=== PATIENT | female | born 1985 | race Caucasian/White ===

== ENCOUNTER 2017-06-29 18:38 | Emergency (ER) | payer BC ==
[~2017-06-29] VITALS: Ht 162.6 cm; Wt 102.9 kg
[2017-06-29 18:50] VITALS: TEMP 36.7; Ht 162.6 cm; Wt 102.9 kg
[2017-06-29] MEDS ORDERED: SODIUM CHLORIDE 0.9% 1000ML 1,000 ML IV STA (20:05)
[2017-06-29 20:20] LABS: URINE APPEARANCE CLOUDY (CLEAR); URINE BILIRUBIN NEG (NEG); URINE COLOR YELLOW; URINE EPITHELIAL CELL AUTO >30 /lpf (0-5); URINE NITRITE NEG (NEG); URINE SPECIFIC GRAVITY 1.031 (1.000-1.030); UROBILINOGEN NEG (NEG); ZZUR CULT IF INDIC CLEAN CATCH YES
[2017-06-29 20:21] LABS: MANUAL MICROSCOPIC REQUIRED? NO; REVIEW REQ? YES
[2017-06-29 20:31] LABS: BASO % 0.3 %; BASO ABS # 0.04 K/uL (0-0.2); COMPLETE YES; EOS % 2.8 %; HEMATOCRIT 38.9 % (37-47); IG% 0.3 %; LYMPH % 28.3 %; MEAN CELL VOLUME 89.6 fL (80-100); MEAN CORPUSCULAR HEMOGLOBIN 30.2 pg (25-34); MEAN CORPUSCULAR HGB CONC 33.7 g/dl (32-36); MEAN PLATELET VOLUME 10.3 fL (7.4-10.4); MONO % 5.9 %; NEUT % 62.4 %; PLATELET COUNT 281 K/uL (130-400); RED BLOOD COUNT 4.34 M/uL (4.2-5.4); WHITE BLOOD COUNT 14.14 K/uL (4.8-10.8)
[2017-06-29 20:47] LABS: ALT/SGPT 29 U/L (12-78); BLOOD UREA NITROGEN 11 mg/dl (7-18); BUN/CREATININE RATIO 13.1 (10-20); CALCIUM 9.1 mg/dl (8.5-10.1); CARBON DIOXIDE 22 mmol/L (21-32); CHLORIDE 110 mmol/L (98-107); CREATININE 0.86 mg/dl (0.60-1.20); GLUCOSE 94 mg/dl (70-99); POTASSIUM 3.8 mmol/L (3.5-5.1); SODIUM 139 mmol/L (136-145)
[2017-06-29 20:51] LABS: ALKALINE PHOSPHATASE 115 U/L (45-117); AST/SGOT 16 U/L (15-37)
--- NOTE | 2017-06-29 20:59 | DIAGNOSTIC IMAGING REPORT ---
RETROPERITONEAL COMPLETE CLINICAL HISTORY: Lower abdominal and back pain. COMPARISON STUDY: Renal ultrasound April 16, 2013. FINDINGS: The right kidney measures 10.6 cm in maximal dimension and the left measures 10.7 cm. There is no hydronephrosis. A few echogenic foci within the right renal sinus without associated shadowing could reflect right renal calculi. Bladder is decompressed and therefore suboptimally assessed. A small amount of free fluid is noted within the pelvis. No renal masses are identified. IMPRESSION: 1. No hydronephrosis. 2. Possible right-sided nephrolithiasis. 3. Small amount of fluid within the pelvis. Electronically signed by: Neal Briggs M.D. 06/29/2017 8:57 PM Dictated Date/Time: 06/29/2017 8:55 PM
[2017-06-29] MEDS ORDERED: OPTIRAY 320 IV PRN (21:45)
[2017-06-29] MEDS ORDERED: ONDANSETRON INJ 2 MG/ML 2 ML VIAL ONE (22:02)
[2017-06-30 00:22] VITALS: BP 112/71; PULSE 77; O2SAT 98
[2017-06-30] MEDS ORDERED: NITR-5 PO (00:42)
[2017-06-30] MEDS ORDERED: MACROBID 100MG HOME PACK 1 EA VIAL PO ONE (00:45)
--- NOTE | 2017-06-30 00:50 | EMERGENCY ROOM VISIT NOTE ---
History First contact with patient: 19:44 Chief Complaint: URINARY SYMPTOMS Stated Complaint: PEEING BLOOD Nursing Triage Summary: blood in urine , abdominal pain, back pain 05/28. History of Present Illness The patient is a 31 year old female who presents to the Emergency Room with complaints of lower abdominal pain, lower back pain and blood in urine. The patient reports that her symptoms started this morning with discomfort, and noticed blood in her urine this afternoon. The patient reports that she did not urinate until this afternoon. The patient reports a prior history of kidney stones and ovarian cysts. She will usually get blood in her urine was stones. She denies any recent urinary symptoms, including increased frequency, urgency or dysuria. She denies , and last menstruation was approximately one month ago. She has had some mild nausea. The patient is status post appendectomy. He has no alleviating or aggravating factors for her pain, and rates her overall discomfort a 7 out of 10. Review of Systems HEENT: Denies dizziness, visual problems, hearing loss, tinnitus. Denies difficulty swallowing or oral lesions. PULMONARY: Denies cough, shortness of breath, sputum production or hemoptysis. CARDIOVASCULAR: Denies chest pain, palpitations, dyspnea on exertion, orthopnea or peripheral edema. GASTROINTESTINAL: See history of present illness. GENITOURINARY: Denies dysuria, frequency, urgency or nocturia. The patient does report hematuria. NEUROLOGIC: Denies history of epilepsy, CVA, TIA or chronic headaches. MUSCULOSKELETAL: Denies history of joint tenderness/swelling. SKIN: Denies rashes or lesions. PSYCHIATRIC: Denies history of depression or mental illness. ENDOCRINE: Denies history of diabetes or thyroid disorders. Past Medical/Surgical History Medical Problems: (1) Kidney stone (2) Ovarian cyst Surgical Problems: (1) History of appendectomy (2) History of cholecystectomy Family History FH: cancer FH: diabetes mellitus FH: gallbladder disease FH: heart disease FH: hypertension FH: kidney disease Social History Smoking Status: Never Smoker Alcohol Use: none Drug Use: none Marital Status: single Housing Status: lives with friends Occupation Status: employed Current/Historical Medications Scheduled Nitrofurantoin Monohyd Macrocr (Macrobid), 100 MG PO BID Physical Exam Vital Signs Date Time Temp Pulse Resp B/P (MAP) Pulse Ox O2 Delivery O2 Flow Rate FiO2 06/29/17 22:26 68 18 163/105 99 Room Air 06/29/17 20:55 72 18 153/95 99 Room Air 06/29/17 18:50 36.7 74 18 148/90 100 Room Air Physical Exam CONSTITUTIONAL: Healthy and well nourished. Alert and oriented X 3 with positive affect. Patient does not appear in any acute distress or discomfort. HEENT: Normocephalic, atraumatic. Pupils equal, round and reactive. No scleral icterus or conjunctival injection/pallor. NECK: Full active range of motion without discomfort. RESPIRATORY: Clear to auscultation bilaterally with no wheezing, crackles, rhonchi or stridor. CARDIOVASCULAR: Regular rate and rhythm with no murmurs, rubs or gallops. GASTROINTESTINAL: Bowel sounds present in all quadrants. Patient has suprapubic and left lower quadrant tenderness to palpation. Negative CVA tenderness. No abdominal rigidity, guarding or rebound. MUSCULOSKELETAL: Full range of motion of all joints without discomfort. INTEGUMENTARY: No rash or other significant dermatologic conditions noted. HEMATOLOGIC: No ecchymosis or petechiae noted. NEUROLOGIC: No focal neurologic deficits noted. Medical Decision & Procedures ER Provider Diagnostic Interpretation: Retroperitoneal ultrasound does not show any hydronephrosis. Radiologist report is as follows: RETROPERITONEAL COMPLETE CLINICAL HISTORY: Lower abdominal and back pain. COMPARISON STUDY: Renal ultrasound April 16, 2013. FINDINGS: The right kidney measures 10.6 cm in maximal dimension and the left measures 10.7 cm. There is no hydronephrosis. A few echogenic foci within the right renal sinus without associated shadowing could reflect right renal calculi. Bladder is decompressed and therefore suboptimally assessed. A small amount of free fluid is noted within the pelvis. No renal masses are identified. IMPRESSION: 1. No hydronephrosis. 2. Possible right-sided nephrolithiasis. 3. Small amount of fluid within the pelvis. Enhanced CT of the abdomen and pelvis did not show any evidence for acute diverticulitis, ureteral stone, hydronephrosis or bowel obstruction. A 4 mm lower pole right renal calculus, and 5 mm right middle lobe nodule is noted. Radiologist report is pending. [facility] report was reviewed. Laboratory Results 06/29/17 20:15 Red Blood Count 4.34, Mean Corpuscular Volume 89.6, Mean Corpuscular Hemoglobin 30.2, Mean Corpuscular Hemoglobin Concent 33.7, Mean Platelet Volume 10.3, Neutrophils (%) (Auto) 62.4, Lymphocytes (%) (Auto) 28.3, Monocytes (%) (Auto) 5.9, Eosinophils (%) (Auto) 2.8, Basophils (%) (Auto) 0.3, Neutrophils # (Auto) 8.83, Lymphocytes # (Auto) 4.00, Monocytes # (Auto) 0.83, Eosinophils # (Auto) 0.40, Basophils # (Auto) 0.04 06/29/17 20:15 Test 06/29/17 19:55 06/29/17 20:15 Urine Color YELLOW Urine Appearance CLOUDY (CLEAR) Urine pH 5.0 (4.5-7.5) Urine Specific [place] 1.031 (1.000-1.030) Urine Protein NEG (NEG) Urine Glucose (UA) NEG (NEG) Urine Ketones NEG (NEG) Urine Occult Blood NEG (NEG) Urine Nitrite NEG (NEG) Urine Bilirubin NEG (NEG) Urine Urobilinogen NEG (NEG) Urine Leukocyte Esterase SMALL (NEG) Urine WBC (Auto) 10-30 /hpf (0-5) Urine RBC (Auto) 0-4 /hpf (0-4) Urine Hyaline Casts (Auto) 5-10 /lpf (0-5) Urine Epithelial Cells (Auto) >30 /lpf (0-5) Urine Bacteria (Auto) 2+ (NEG) Urine Test NEG (NEG) White Blood Count 14.14 K/uL (4.8-10.8) Red Blood Count 4.34 M/uL (4.2-5.4) Hemoglobin 13.1 g/dL (12.0-16.0) Hematocrit 38.9 % (37-47) Mean Corpuscular Volume 89.6 fL (80-100) Mean Corpuscular Hemoglobin 30.2 pg (25-34) Mean Corpuscular Hemoglobin Concent 33.7 g/dl (32-36) Platelet Count 281 K/uL (130-400) Mean Platelet Volume 10.3 fL (7.4-10.4) Neutrophils (%) (Auto) 62.4 % Lymphocytes (%) (Auto) 28.3 % Monocytes (%) (Auto) 5.9 % Eosinophils (%) (Auto) 2.8 % Basophils (%) (Auto) 0.3 % Neutrophils # (Auto) 8.83 K/uL (1.4-6.5) Lymphocytes # (Auto) 4.00 K/uL (1.2-3.4) Monocytes # (Auto) 0.83 K/uL (0.11-0.59) Eosinophils # (Auto) 0.40 K/uL (0-0.5) Basophils # (Auto) 0.04 K/uL (0-0.2) RDW Standard Deviation 42.6 fL (36.4-46.3) RDW Coefficient of Variation 12.9 % (11.5-14.5) Immature Granulocyte % (Auto) 0.3 % Immature Granulocyte # (Auto) 0.04 K/uL (0.00-0.02) Anion Gap 7.0 mmol/L (3-11) Est Creatinine Clear Calc Drug Dose 109.7 ml/min Estimated GFR () 103.6 Estimated GFR (Non- 89.4 BUN/Creatinine Ratio 13.1 (10-20) Calcium Level 9.1 mg/dl (8.5-10.1) Total Bilirubin 0.2 mg/dl (0.2-1) Direct Bilirubin < 0.1 mg/dl (0-0.2) Aspartate Amino Transf (AST/SGOT) 16 U/L (15-37) Alanine Aminotransferase (ALT/SGPT) 29 U/L (12-78) Alkaline Phosphatase 115 U/L (45-117) Total Protein 7.5 gm/dl (6.4-8.2) Albumin 3.7 gm/dl (3.4-5.0) Lipase 142 U/L (73-393) The above labs were reviewed. Urine was negative. Urinalysis is unremarkable. Urine cultures are pending. White count is elevated at over 14, 000 with left shift and bandemia. LFTs and lipase are normal. Medications Administered Medications (Trade) Dose Ordered Sig/Martha Route Start Time Stop Time Status Last Admin Dose Admin Sodium Chloride 1,000 ml @ 999 mls/hr Q1H1M STAT IV 06/29/17 20:05 06/29/17 21:05 DC 06/29/17 20:22 999 MLS/HR Ondansetron HCl (Zofran Inj) 4 mg STK-MED ONCE .ROUTE 06/29/17 22:02 06/29/17 22:03 DC 06/29/17 22:05 4 MG Procedure 1. IV hydration: The patient was administered a liter normal saline bolus 2. IV medications: Zofran 4 mg IVP ED Course Patient history and physical exam were performed. Nurse's notes were reviewed. Vital signs were reviewed, showing an elevated blood pressure 148/90. The patient is otherwise afebrile. She is not tachycardic. IV access was established, and labs were drawn. The patient was hydrated with a liter normal saline. She initially refused any analgesics or antiemetics. Review of labs shows a moderate leukocytosis with left shift and bandemia. Remaining labs, including urinalysis were normal. Retroperitoneal ultrasound was nondiagnostic with no acute findings. Given that the patient does have an elevated white count, and tenderness to palpation extending into the left lower quadrant region, I did suggest performing an enhanced CT of the abdomen and pelvis to rule out acute diverticulitis or other acute intra-abdominal etiology. The patient was in agreement. Condition did require some IV Zofran with nausea with her oral prep. Enhanced CT of the abdomen and pelvis did not show any acute findings. Incidental findings of a 4 mm lower pole right renal calculus, and 5 mm right middle lobe nodule were noted. Findings were reviewed with the patient. The patient was provided a home pack and prescription for Macrobid until urine cultures are completed. She was instructed to follow-up with her PCP for reevaluation in the next 2-3 days, and to review cultures. She was also encouraged to discuss further surveillance of her right middle lobe lung nodule. Seek further emergent reevaluation for any progressively worsening pain , vomiting, fever or other concerning symptoms. The patient was happy with plan of care, voiced understanding of all discharge instructions, and denied any significant pain or nausea at the time of discharge. The patient was also advised to discuss her elevated blood pressure with her family doctor. Medical Decision Patient presents to emergency department with complaint of lower abdominal/back pain and hematuria. Her urinalysis today is not high suggestive of UTI. The patient did have a moderate leukocytosis, warranting further imaging studies of the abdomen which did not show any evidence for diverticulitis, ureteral calculi , obstruction or other acute findings. A retroperitoneal ultrasound was initially performed until her white count returned as elevated. At this point, her workup is not suggestive of pyelonephritis, obstructive uropathy, diverticulitis, obstruction or other significant intra-abdominal etiologies. The patient is status post cholecystectomy and appendectomy. Medication Reconcilliation Current Medication List: was personally reviewed by me Blood Pressure Screening Patient's blood pressure: Elevated blood pressure Blood pressure disposition: Referred to PCP Impression Primary Impression: Lower abdominal pain Additional Impressions: Hematuria Lung nodule < 6cm on CT Elevated blood pressure reading Departure Information Prescriptions Nitrofurantoin Monohyd Macrocr (Macrobid) 100 Mg Cap 100 MG PO BID for 6 Days, #12 CAP Prov: Cruz Rivera PA 06/30/17 Referrals No Doctor, Assigned (PCP) Patient Instructions [facility] Problem Qualifiers Additional Impressions: Hematuria Hematuria type: unspecified type Qualified Codes: R31.9 - Hematuria, unspecified
--- NOTE | 2017-06-30 06:51 | DIAGNOSTIC IMAGING REPORT ---
ABDOMEN AND PELVIS CT WITH IV AND ORAL CONTRAST CT DOSE: 794.36 mGy.cm HISTORY: Suprapubic/LLQ abd/back pain - posible diverticulitis TECHNIQUE: Multiaxial CT images of the abdomen and pelvis were performed following the use of intravenous and oral contrast. A dose lowering technique was utilized adhering to the principles of ALARA. COMPARISON STUDY: Renal ultrasound 06/29/2017. FINDINGS: A 4 mm stone within the lower pole of the right kidney. The kidneys enhance normally. No ureteral stones. No hydronephrosis. Trace pelvic fluid. The uterus and left ovary are unremarkable. A 1.5 cm thick-walled cyst within the right ovary. This favors a corpus luteum. No bowel wall thickening or obstruction. The appendix is not identified and is likely surgically absent. No retroperitoneal lymphadenopathy. Cholecystectomy. The liver, spleen, adrenal glands, and pancreas are unremarkable. A 3 mm subpleural nodule within the right middle lobe and a 3 mm subpleural nodule within the left lower lobe. A 4 mm subpleural nodule on the right minor fissure. IMPRESSION: 1. Right-sided nephrolithiasis. No ureteral stones. No hydronephrosis. 2. No bowel wall thickening or obstruction. 3. Trace pelvic free fluid. This is likely physiologic. 4. Subcentimeter pulmonary nodules with the largest measuring 4 mm. 5. Cholecystectomy. Electronically signed by: Paxton Felton M.D. 06/30/2017 6:50 AM Dictated Date/Time: 06/30/2017 6:43 AM
== END 2017-06-30 00:55 | disposition home or self-care (01) ==
LOC: C.EDB 18:39
DX: N20.0 Calculus of kidney (principal); R91.1 Solitary pulmonary nodule; R03.0 Elevated blood-pressure reading, without diagnosis of hypertension; Z87.442 Personal history of urinary calculi; Z90.49 Acquired absence of other specified parts of digestive tract; Z80.9 Family history of malignant neoplasm, unspecified; Z83.3 Family history of diabetes mellitus; Z82.49 Family history of ischemic heart disease and other diseases of the circulatory system; Z84.1 Family history of disorders of kidney and ureter